=== PATIENT | male | born 1980 | race Caucasian/White ===

== ENCOUNTER 2024-01-28 13:18 | Emergency (ER) | payer MEDICARE, MEDICAID ==
[~2024-01-28] VITALS: Ht 170.2 cm; Wt 109.0 kg
[2024-01-28 14:04] LABS: Acetaminophen < 2.0 UG/ML (10.0-20.0)
[2024-01-28 14:08] LABS: Salicylate < 3.0 mg/dL (2.8-20.0)
[2024-01-28 14:56] LABS: Amphetamine Screen, Urine Neg (NEGATIVE); Barbiturate Scree,Urine Neg (NEGATIVE); Benzodiazephine Screen, Urine Neg (NEGATIVE); Cocaine Screen, Urine Neg (NEGATIVE)
[2024-01-28 14:58] LABS: Cannabinoid Screen, Urine Pos (NEGATIVE); Opiate Scree,Urine Neg (NEGATIVE); Phencyclidine Screen, Urine Neg (NEGATIVE)
[2024-01-28] MEDS: QUEtiapine FUMARATE 100 MG TAB PO SCH (23:41)
[2024-01-29] MEDS ORDERED: DEXTROSE (50%) 50ML SYRG IV PRN (00:30)
[2024-01-29] MEDS: ACCU-CHEK COMFORT CURVE STRIP VI SCH (06:26)
[2024-01-29] MEDS: InsuLIN REG 1unit/0.01ml Soln (100units/ml) SC SCH (06:27)
[2024-01-29] MEDS: buPROPion HCL 100 MG TAB PO SCH (10:23)
[2024-01-29] MEDS: ACETAMINOPHEN 325 MG TAB PO ONE (15:23)
[2024-01-29 19:45] VITALS: PULSE 80; RESP 15; O2SAT 96
[2024-01-29] MEDS: guaiFENesin-DM 100/10mg/5ml SYR PO ONE (20:55)
[2024-01-29 21:35] VITALS: BP 119/88; PULSE 83; RESP 16; TEMP 97.3; O2SAT 98
== END 2024-01-29 21:35 | disposition short-term general hospital (02) ==
LOC: EDBD 13:18 → ER 13:18
DX: R45.851 Suicidal ideations (principal); F20.9 Schizophrenia, unspecified; Z79.899 Other long term (current) drug therapy
CPT/HCPCS: 36415; 80307; 80320; 80329; 82962; 96372; 99285; J1815

== ENCOUNTER 2024-05-17 10:03 | Inpatient (IN) | payer MEDICARE, MEDICAID ==
[~2024-05-17] VITALS: Ht 172.7 cm; Wt 111.7 kg
[2024-05-17] MEDS: NALOXONE HCL 0.4 MG/ML VIAL IV ONE (11:00)
[2024-05-17 11:03] VITALS: PULSE 85; RESP 12; O2SAT 94
[2024-05-17 11:31] LABS: Basophils # (auto) 0.1 10 ^3/uL (0-0.2); Basophils % (auto) 0.7 % (0.0-2.0); Eosinophils # (auto) 0.1 10 ^3/uL (0-0.8); Eosinophils % (auto) 0.7 % (0.0-7.0); Hematocrit 46.9 % (41.0-53.0); Hemoglobin 16.5 g/dL (13.5-17.5); Lymphocytes # (auto) 2.8 10 ^3/uL (0.4-5.4); Lymphocytes % (auto) 26.3 % (10.0-50.0); Mean Corpuscular Hemoglobin 32.7 pg (28.0-32.0); Mean Corpuscular Hgb Conc. 35.1 g/dL (32.0-36.0); Mean Corpuscular Volume 93.3 fL (80.0-100.0); Monocytes # (auto) 0.8 10 ^3/uL (0-1.3); Neutrophils # (auto) 7.1 10 ^3/uL (1.6-8.6); Neutrophils % (auto) 65.3 % (37.0-80.0); Platelet Count (auto) 236 10^3/uL (140-450); Red Blood Cells 5.03 10^6/uL (4.5-5.90); Red Cell Distribution Width 12.8 % (11.8-14.3); White Blood Cell 10.8 10^3/uL (4.4-10.8)
[2024-05-17 11:49] LABS: Alanine Aminotransferase 49 U/L (7-40); Alkaline Phosphatase 82 U/L (46-116); Anion Gap 12 (5-15); Aspartate Aminotransferase 23 U/L (13-40); BUN/Creatinine Ratio 10.3 (10.0-20.0); Blood Alcohol < 3.0 mg/dL (<10); Blood Urea Nitrogen 12 mg/dL (9-23); Carbon Dioxide 22 mmol/L (20-30); Chloride 104 mmol/L (98-107); Glucose 356 mg/dL (74-106); Potassium 5.2 mmol/L (3.5-5.1); Sodium 138 mmol/L (136-145)
[2024-05-17 11:50] LABS: Bilirubin, Total 0.3 mg/dL (0.2-1.0)
[2024-05-17 11:53] LABS: Urine Bacteria MANY /hpf (None Seen); Urine Blood Negative /uL (Negative); Urine Clarity Clear (Clear); Urine Color Light-Yellow (Yellow); Urine Mucus FEW (None Seen); Urine Protein, UAD 1+ (Negative); Urine Specific Gravity 1.028 (1.001-1.035); Urine Sperm PRESENT /hpf (None Seen); Urine Urobilinogen Normal (Negative); Urine WBC 7 /hpf (0 - 3)
[2024-05-17 12:06] LABS: Amphetamine Screen, Urine Pos (NEGATIVE); Barbiturate Scree,Urine Neg (NEGATIVE); Benzodiazephine Screen, Urine Neg (NEGATIVE); Cannabinoid Screen, Urine Pos (NEGATIVE); Cocaine Screen, Urine Pos (NEGATIVE); Opiate Scree,Urine Neg (NEGATIVE); Phencyclidine Screen, Urine Neg (NEGATIVE)
[2024-05-17] MEDS ORDERED: DOCUSATE SOD 100 MG CAP PO PRN (16:00)
[2024-05-17] MEDS ORDERED: NITROGLYCERIN 0.4 MG SL TAB SL PRN (16:00)
[2024-05-17] MEDS ORDERED: DEXTROSE (50%) 50ML SYRG IV PRN (16:00)
[2024-05-17] MEDS: PANTOPRAZOLE 40 MG/10 ML VIAL INJ IV ONE (16:29)
[2024-05-17] MEDS: SODIUM CHLORIDE 0.9% 1,000 ML IV SCH (16:29)
[2024-05-17] MEDS: DICYCLOMINE HCL (10MG/ML) 2 ML AMPULE IM ONE (16:29)
[2024-05-17] MEDS: NALOXONE HCL 1MG/ML 2ML SYRINGE ONE (17:52)
[2024-05-17] MEDS: NALOXONE HCL 1MG/ML 2ML SYRINGE IV ONE ×2 (17:53→17:58)
[2024-05-17] MEDS ORDERED: InsuLIN REG 1unit/0.01ml Soln (100units/ml) SC SCH (18:00)
[2024-05-17] MEDS ORDERED: ACCU-CHEK COMFORT CURVE STRIP VI SCH (18:00)
[2024-05-17] MEDS: InsuLIN REG 1unit/0.01ml Soln (100units/ml) SC SCH (18:20)
[2024-05-17] MEDS: ACCU-CHEK COMFORT CURVE STRIP VI SCH (18:22)
[2024-05-17] MEDS: ALBUTEROL SULF 2.5 MG/0.5ML(0.5%) NEB SOLN NEB ONE (19:30)
[2024-05-17] MEDS: SODIUM BICARB 8.4% 50Meq/50ml SYR INJ IV ONE (20:32)
[2024-05-17] MEDS: InsuLIN REG 1unit/0.01ml Soln (100units/ml) IV ONE (20:33)
[2024-05-17] MEDS: FUROSEMIDE 20 MG/2 ML VIAL IV ONE (20:33)
[2024-05-17] MEDS: DEXTROSE (50%) 50ML SYRG IV ONE (20:35)
[2024-05-17 22:13] VITALS: PULSE 77; RESP 14; O2SAT 94
[2024-05-18 06:31] LABS: Basophils # (auto) 0 10 ^3/uL (0-0.2); Basophils % (auto) 0.2 % (0.0-2.0); Eosinophils # (auto) 0.2 10 ^3/uL (0-0.8); Eosinophils % (auto) 1.5 % (0.0-7.0); Hematocrit 40.7 % (41.0-53.0); Hemoglobin 14.3 g/dL (13.5-17.5); Lymphocytes # (auto) 4.8 10 ^3/uL (0.4-5.4); Lymphocytes % (auto) 29.5 % (10.0-50.0); Mean Corpuscular Hemoglobin 32.8 pg (28.0-32.0); Mean Corpuscular Hgb Conc. 35.1 g/dL (32.0-36.0); Mean Corpuscular Volume 93.4 fL (80.0-100.0); Monocytes # (auto) 1.3 10 ^3/uL (0-1.3); Monocytes % (auto) 8.1 % (0.0-12.0); Neutrophils # (auto) 9.9 10 ^3/uL (1.6-8.6); Neutrophils % (auto) 60.7 % (37.0-80.0); Nucleated Red Blood Cells % 0.1 %; Platelet Count (auto) 202 10^3/uL (140-450); Red Blood Cells 4.35 10^6/uL (4.5-5.90); Red Cell Distribution Width 12.9 % (11.8-14.3); White Blood Cell 16.3 10^3/uL (4.4-10.8)
[2024-05-18 07:02] LABS: Alanine Aminotransferase 34 U/L (7-40); Albumin 4.1 g/dL (3.2-4.8); Alkaline Phosphatase 66 U/L (46-116); Anion Gap 11 (5-15); Aspartate Aminotransferase 14 U/L (13-40); BUN/Creatinine Ratio 8.3 (10.0-20.0); Bilirubin, Total 0.5 mg/dL (0.2-1.0); Blood Urea Nitrogen 7 mg/dL (9-23); Calcium 8.5 mg/dL (8.7-10.4); Carbon Dioxide 24 mmol/L (20-30); Chloride 102 mmol/L (98-107); Glucose 92 mg/dL (74-106); Potassium 3.8 mmol/L (3.5-5.1); Sodium 137 mmol/L (136-145); Total Protein 5.9 g/dL (5.7-8.2)
[2024-05-18] MEDS: PANTOPRAZOLE 40 MG/10 ML VIAL INJ IV SCH (08:51)
[2024-05-18] MEDS: ONDANSETRON HCL 4 MG/2 ML VIAL IV PRN (19:12)
[2024-05-18] MEDS: ACETAMINOPHEN 325 MG TAB PO PRN (20:51)
[2024-05-18 21:00] VITALS: BP 137/80; PULSE 71; RESP 18; TEMP 97.5; O2SAT 97
[2024-05-18 21:16] VITALS: BP 124/86; PULSE 74; PULSE 80; RESP 16; RESP 20; TEMP 97.5; O2SAT 94; O2SAT 97
[2024-05-19] MEDS ORDERED: QUET200T4 PO (00:22)
[2024-05-19 01:00] VITALS: BP 152/83; PULSE 69; RESP 18; TEMP 97.7; O2SAT 95
[2024-05-19 05:00] VITALS: BP 126/65; PULSE 65; RESP 17; TEMP 97.8; O2SAT 94
[2024-05-19 08:30] VITALS: PULSE 66; RESP 14
[2024-05-19 09:00] VITALS: BP 151/87; PULSE 66; RESP 14; TEMP 98.3; O2SAT 96
[2024-05-19 13:00] VITALS: BP 141/80; PULSE 71; RESP 16; TEMP 97.8; O2SAT 96
[2024-05-19 17:00] VITALS: BP 158/83; PULSE 73; RESP 16; TEMP 98.5; O2SAT 98
[2024-05-19] MEDS ORDERED: QUEtiapine FUMARATE 100 MG TAB PO SCH (22:00)
== END 2024-05-19 19:00 | disposition home or self-care (01) | DRG 917 ==
LOC: ER 10:03 → EDBD 10:03 → TELE 16:04 → TELE-E-ADS 05-18 21:00
PROVIDERS: ADMIT Nurse Practitioner Family; ATTEND Internal Medicine
DX: T40.411A Poisoning by fentanyl or fentanyl analogs, accidental (unintentional), initial encounter (principal); G92.8 Other toxic encephalopathy; E87.5 Hyperkalemia; E11.9 Type 2 diabetes mellitus without complications; I10 Essential (primary) hypertension; F31.9 Bipolar disorder, unspecified; T40.5X1A Poisoning by cocaine, accidental (unintentional), initial encounter; T40.711A Poisoning by cannabis, accidental (unintentional), initial encounter; K21.9 Gastro-esophageal reflux disease without esophagitis; F10.20 Alcohol dependence, uncomplicated; Z79.899 Other long term (current) drug therapy; Z79.4 Long term (current) use of insulin; Z82.49 Family history of ischemic heart disease and other diseases of the circulatory system; Y90.0 Blood alcohol level of less than 20 mg/100 ml; Y92.89 Other specified places as the place of occurrence of the external cause
CPT/HCPCS: 36415; 70450; 71045; 80053; 80307; 80320; 81001; 82010; 82962; 83036; 84132; 85025; 94640; 96365; 96372; 96375; G0378; J1815; J2405; J2470